=== PATIENT | female | born 1950 | race African-American/Black ===

== ENCOUNTER 2020-04-24 13:29 | Emergency (ER) | payer MEDICARE ==
--- NOTE | 2020-04-24 14:44 | ER Document Report ---
ED Medical Screen (RME) - General Chief Complaint: Shortness Of Breath Stated Complaint: SHORT OF BREATH,COUGH,CONGESTION Time Seen by Provider: 04/24/20 14:27 Mode of Arrival: Wheelchair Information source: Patient Notes: 70-year-old female presents to ED for cough congestion shortness of breath. She states she is very short of breath. She is audibly wheezing. She is on O2 2 L. He is on cannula I did do her vital signs and given to the patient foster care worker to chart. I did ask her to chart the vital signs. Order chest x-ray blood work steroids and nebulizer. I have greeted and performed a rapid initial assessment of this patient. A comprehensive ED assessment and evaluation of the patient, analysis of test results and completion of medical decision making process will be conducted by an additional ED providers.
[2020-04-24] MEDS ORDERED: PREDNISONE 20 MG TABLET PO ONE (14:45)
[2020-04-24 15:12] VITALS: BP 149/61
[2020-04-24] MEDS ORDERED: ALBUTEROL SULFATE 0.083% NEB 2.5 MG/3 ML AMPUL NEB ONE (15:24)
--- NOTE | 2020-04-24 15:30 | ER Document Report ---
ED General - General Chief Complaint: Shortness Of Breath Stated Complaint: SHORT OF BREATH,COUGH,CONGESTION Time Seen by Provider: 04/24/20 14:27 Mode of Arrival: Ambulatory Information source: Patient Notes: Patient is a 70-year-old -[place] female who presents with shortness of breath. She is a recent transplant to the area from [place]. Her had back in March and she moved up here to be with family. She is oxygen dependent at home secondary to COPD. She uses 2 L of nasal cannula. She notices over the past few days that she is increasingly more short of breath than normal. Taking her usual medications. She denies having fevers and shaking chills. Denies nasal congestion. Coughing more than normal. No productivity. She denies chest pain. On exam she is audibly wheezing. - Related Data Allergies/Adverse Reactions: Sulfa (Sulfonamide Antibiotics) Allergy (Verified 04/24/20 15:24) Past Medical History - General Information source: Patient - Social History Smoking Status: Never Smoker Family History: Hypertension Review of Systems - Review of Systems Notes: Constitutional: No fevers. No chills. EENT: No eye redness. No eye pain. No ear pain. No sore throat. Cardiovascular: No chest pain. No palpitations. Respiratory: +cough. +shortness of breath. Mild respiratory distress. +wheezing Gastrointestinal: No abdominal pain. No nausea, vomiting, or diarrhea. Genitourinary: Atraumatic. No lesions. No pain. No discharge. Musculoskeletal: Atraumatic. No swelling. No deformities. Skin: No rash or lesions. Lymphatic: No swollen lymph nodes. Neurologic: No headache. No syncope. Psychiatric: No suicidal or homicidal ideation. Physical Exam - Vital signs Vitals: Temp Pulse Resp BP Pulse Ox 98.7 F 60 16 149/61 H 100 04/24/20 15:10 04/24/20 15:10 04/24/20 15:10 04/24/20 15:10 04/24/20 15:10 - Notes Notes: General: Well-developed, well-nourished. In no acute distress. Non-toxic appearing. Chronically ill-appearing Cardiac: Well-perfused. Regular rate and rhythm. No murmurs, rubs, or gallops. Bilateral lower extremities without edema Pulmonary: Mild respiratory distress. Audibly wheezing. No cyanosis. Abdominal: Non-distended. Non-rigid. Bowels sounds are present in all four quadrants. No guarding or rebound. HEENT: Head is atraumatic. Conjunctivae not reddened. No tearing. PERRL. EOMI. Orbits atraumatic. No periorbital swelling or erythema. Oropharynx is without erythema, swelling, or exudates. Neck: Supple. No adenopathy. No meningismus. Dermatologic: Warm with good turgor. No rash. Atraumatic. Chest: Atraumatic. No chest wall tenderness to palpation. Musculoskeletal: Moves all extremities well. No range of motion deficits. no muscular or joint tenderness. No paraspinal muscle tenderness. no midline spinal tenderness or step-off. Genitourinary: Examination deferred Neurologic: No gross neurologic deficits. Psychiatric: Normal mood. Course - Re-evaluation Re-evalutation: 04/24/20 15:29 We will get some basic lab work, chest x-ray, p.o. prednisone as ordered, multiple albuterol nebulizer treatments. Also patient would benefit from COVID testing as well as influenza as she is in a high risk group for both. Hoping with some breathing treatments and steroids and making sure she is not running a pneumonia hopefully we can get her better and get her home if possible. 04/24/20 15:30 04/24/20 18:41 Recheck patient. Audible wheezing has resolved. Patient feeling overall improvement in her dyspnea. Labs pending. Chest x-ray is negative. Flu test is negative. COVID sent. 04/24/20 20:59 At long last, patient's labs have come back. Her creatinine is 7.5. She is a dialysis patient. Her potassium is normal. Has had 2 DuoNeb treatments as well as 2 albuterol treatments. Her wheezing has improved. Patient was satting 93% to 94% on room air during her ambulation trial. She has oxygen at 2 L all the time at home. Discharge her home with the instructions to take prednisone daily for 5 days as well as take a nebulizer treatment every 4 hours [id number]. - Vital Signs Vital signs: Temp Pulse Resp BP Pulse Ox 98.7 F 60 16 149/61 H 100 04/24/20 15:40 04/24/20 15:10 04/24/20 15:10 04/24/20 15:10 04/24/20 15:10 - Laboratory Result Diagrams: 04/24/20 19:49 04/24/20 19:49 Laboratory results interpreted by me: 04/24/20 04/24/20 19:49 19:49 RDW 15.2 H Lymph % (Auto) 8.0 L [place] % (Auto) 1.5 L Seg Neutrophils % 87.4 H BUN 40 H Creatinine 7.50 H Est GFR ( Amer) 7 L Est GFR (MDRD) Non-Af 5 L Glucose 168 H Direct Bilirubin 1.1 H Alkaline Phosphatase 154 H - Diagnostic Test Radiology reviewed: Reports reviewed Discharge - Discharge Clinical Impression: COPD with acute exacerbation Condition: Good Disposition: HOME, SELF-CARE Instructions: Chronic Obstructive Lung Disease ([facility]) Prescriptions: Azithromycin 250 mg PO DAILY 5 Days #6 tablet Prednisone [Deltasone 20 mg Tablet] 3 tab PO DAILY 5 Days #15 tablet Referrals: STEFFEN SPANN MD [ACTIVE STAFF] - Follow up in 3-5 days
--- NOTE | 2020-04-24 15:40 | RADIOLOGY REPORT (SQ) ---
EXAM DESCRIPTION: CHEST SINGLE VIEW IMAGES COMPLETED DATE/TIME: 04/24/2020 3:29 pm REASON FOR STUDY: short of breath cough COMPARISON: None. EXAM PARAMETERS: NUMBER OF VIEWS: One view. TECHNIQUE: Single frontal radiographic view of the chest acquired. RADIATION DOSE: NA LIMITATIONS: None. FINDINGS: LUNGS AND PLEURA: No opacities, masses or pneumothorax. No pleural effusion. MEDIASTINUM AND HILAR STRUCTURES: No masses. Contour normal. HEART AND VASCULAR STRUCTURES: Heart normal in size. Normal vasculature. BONES: No acute findings. HARDWARE: None in the chest. OTHER: No other significant finding. IMPRESSION: NO ACUTE RADIOGRAPHIC FINDING IN THE CHEST. TECHNICAL DOCUMENTATION: JOB ID: [id number] 2010 [employer]- All Rights Reserved Reading location - IP/workstation name: [email or web address]
[2020-04-24] MEDS: ALBUTEROL SULFATE 0.083% NEB 2.5 MG/3 ML AMPUL NEB SCH ×3 (16:27→16:58)
[2020-04-24] MEDS ORDERED: IPRATROPIUM/ALBUTEROL 0.5-2.5 MG/3 ML AMPUL NEB ONE (16:56)
[2020-04-24 17:10] LABS: A TYPE INFLUENZA AG NEGATIVE (NEGATIVE); B INFLUENZA AG NEGATIVE (NEGATIVE)
[2020-04-24 19:58] LABS: ABSOLUTE EOSINOPHILS # (AUTO) 0.2 10^3/uL (0.0-0.6); ABSOLUTE LYMPHOCYTES (AUTO) 0.6 10^3/uL (0.5-4.7); ABSOLUTE MONOCYTES (AUTO) 0.1 10^3/uL (0.1-1.4); ABSOLUTE NEUT (AUTO) 7.1 10^3/uL (1.7-8.2); BASOPHILS % (AUTO) 0.6 % (0-2); EOSINOPHILS % (AUTO) 2.5 % (0-6); HEMATOCRIT 37.5 % (36.0-47.0); HEMOGLOBIN 12.5 g/dL (12.0-15.5); MEAN CORPUSCULAR HEMOGLOBIN 30.7 pg (27.0-33.4); MEAN CORPUSCULAR HGB CONC 33.3 g/dL (32.0-36.0); MEAN CORPUSCULAR VOLUME 92 fl (80-97); MONOCYTES % (AUTO) 1.5 % (3-13); PLATELET COUNT 158 10^3/uL (150-450); RED BLOOD COUNT 4.06 10^6/uL (3.72-5.28); RED CELL DISTRIBUTION WIDTH 15.2 % (11.5-14.0); SEGMENTED NEUTROPHILS % (AUTO) 87.4 % (42-78); TOTAL CELLS COUNTED % (AUTO) 100 %; WHITE BLOOD COUNT 8.1 10^3/uL (4.0-10.5)
[2020-04-24 20:20] LABS: ALBUMIN 4.8 g/dL (3.5-5.0); ALKALINE PHOSPHATASE 154 U/L (38-126); ANION GAP 14 (5-19); ASPARTATE AMINO TRANSFERASE 23 U/L (14-36); BILIRUBIN,DIRECT 1.1 mg/dL (0.0-0.4); BILIRUBIN,TOTAL 1.1 mg/dL (0.2-1.3); BLOOD UREA NITROGEN 40 mg/dL (7-20); CALCIUM 9.1 mg/dL (8.4-10.2); CARBON DIOXIDE 28 mmol/L (22-30); CHLORIDE 99 mmol/L (98-107); GLUCOSE 168 mg/dL (75-110); POTASSIUM 4.6 mmol/L (3.6-5.0); TOTAL PROTEIN 7.4 g/dL (6.3-8.2)
== END 2020-04-24 21:31 | disposition home or self-care (01) ==
LOC: ER 13:29
DX: J44.1 Chronic obstructive pulmonary disease with (acute) exacerbation (principal); R06.02 Shortness of breath; Z20.828 Contact with and (suspected) exposure to other viral communicable diseases; Z99.81 Dependence on supplemental oxygen; Z88.2 Allergy status to sulfonamides
CPT/HCPCS: 94640; 99284; 36415; 85025; 80053; 87804; 71045; U0003; A9270 ×2; C9803; 87635; J7512; J7613

== ENCOUNTER → 2020-07-31 | Outpatient (CLI) | payer MEDICARE, BC ==
--- NOTE | 2020-07-31 16:09 | RADIOLOGY REPORT (SQ) ---
EXAM DESCRIPTION: U/S RETROPERITON (RENAL/AORTA) IMAGES COMPLETED DATE/TIME: 07/31/2020 1:26 pm REASON FOR STUDY: (N28.89)OTHER SPECIFIED DISORDERS OF KIDNEY AND URETER N28.89 OTHER SPECIFIED DIS ORDERS OF KIDNEY AND URETER COMPARISON: None. TECHNIQUE: Dynamic and static grayscale images acquired of the kidneys and bladder and recorded on P ACS. Additional selected color Doppler and spectral images recorded. LIMITATIONS: None. FINDINGS: RIGHT KIDNEY: Surgically absent. LEFT KIDNEY: 8.7 cm. Echogenic cortex. 2 cysts, the largest 3.1 cm. No hydronephrosis. BLADDER: Not visualized. OTHER FINDINGS: No other significant finding. IMPRESSION: Chronic medical disease left kidney status post right nephrectomy. TECHNICAL DOCUMENTATION: JOB ID: [id number] 2010 [employer]- All Rights Reserved Reading location - IP/workstation name: [email or web address]
== END ==
LOC: RAD 13:00
PROVIDERS: ATTEND Internal Medicine Nephrology
DX: N28.89 Other specified disorders of kidney and ureter (principal)
CPT/HCPCS: 76770